=== PATIENT | female | born 1950 | race Caucasian/White ===

== ENCOUNTER → 2016-12-06 | Day surgery (SDC) | payer BC ==
[~2016-12-06] MED LIST: HYDR-963 PO; IV RINGERS,LACTATED 1000ML 1,000 ML IV SCH; LIDOCAINE 2% PF Vial for OR 5 ML VIAL. ONE; LISI1TAB7 PO; PROPOFOL 20 ML IV ONE
--- NOTE | 2016-12-06 15:28 | PDOC1 ---
History and Physical Date of Admission Date of Admission DATE: 12/06/16 TIME: 15:25 Source Source: Chart review, Patient History of Present Illness History of Present Illness 66 y/o female here for CRC screening. No prior. No GI complaints. No GI family history. Past Medical History Cardiovascular: HTN Musculoskeletal: Osteoarthritis Past Surgical History Past Surgical History None Family History Family History: Cancer (lung, leukemia, breast) Social History Smoke: No ALCOHOL: occassional Drugs: None Current Medications Current Medications Current Medications Lactated Ringer's 1,000 ml @ 50 mls/hr Q20H IV Last administered on 12/06/16t 07:00; Start 12/06/16 at 07:00; Stop 12/06/16 at 18:59 Propofol (Diprivan) 20 ml @ As Directed STK-MED ONCE IV ; Start 12/06/16 at 12: 18; Stop 12/06/16 at 12:19; Status DC Lidocaine HCl (Lidocaine Pf 2% Vial) 5 ml STK-MED ONCE .ROUTE ; Start 12/06/16 at 12:18; Stop 12/06/16 at 12:19; Status DC Active Scripts Active Reported [place] 10-325 Tablet (Acetaminophen/Hydrocodone Bitart) 1 Each Tablet 1-2 Tab PO Q4-6HRS Lisinopril-Hctz 20-25 Mg Tab (Lisinopril/Hydrochlorothiazide) 1 Each Tablet 1 Tab PO DAILY Allergies Allergies: Coded Allergies: erythromycin base (Verified Allergy, Intermediate, 12/06/16) ROS Review of System 10-point review otherwise negative. Physical Exam General: Alert, Oriented X3, Cooperative, No acute distress Lungs: Clear to auscultation Heart: S1S2, RRR, no gallops, no murmurs Abdomen: Normal bowel sounds, Soft, No tenderness, No hepatosplenomegaly, No masses Rectal Exam: deferred Extremities: No cyanosis, No edema Skin: No significant lesion Neuro: Normal speech, Strength at 5/5 X4 ext, Normal tone, Sensation intact, Cranial nerves 3-12 NL, Reflexes 2+ Psych/Mental Status: Mental status NL, Mood NL Vitals Vitals Vital Signs Date Time Temp Pulse Resp B/P Pulse Ox O2 Delivery O2 Flow Rate FiO2 12/06/16 11:10 75 20 96 VTE Prophylaxis Ordered VTE Prophylaxis Devices: No VTE Pharmacological Prophylaxi: No Assessment/Plan Assessment/Plan IMP: CRC screening, average risk. Plan: colonoscopy. XUAN NATION MD Dec 06, 2016 15:28
--- NOTE | 2016-12-06 16:01 | PDOC4 ---
PROCEDURE Procedure Colon/biopsy Ind: screen/ave risk/no prior. MEds: per anesthesia Findings: JAILYN normal. Diverticulosis sigmoid. 3mm polyp mid-transverse, biopsied off. Exam otherwise normal. Suzy. well IIMP: polyp tics REC: await path resume meds, diet. f/u 2 weeks repeat exam based on path. XUAN NATION MD Dec 06, 2016 16:01
[2016-12-06 16:30] VITALS: BP 147/63
--- NOTE | 2016-12-11 14:37 | PATHOLOGY ---
PATHOLOGY REPORT * * * * * * * * FINAL DIAGNOSIS: Colon, mid transverse, biopsy: - Hyperplastic polyp. (SUSANAM:; d/t: 12/11/16) REPORT ELECTRONICALLY SIGNED BY: Dora Payne M.D. DATE/TIME: 12/11/2016 14:37 * * * * * * * * GROSS PATHOLOGY: Received in formalin labeled "Zunilda Edwards, mid transverse colon polyp," are 3 segments of delgado soft tissue measuring 0.5 x 0.4 x 0.3 cm in aggregate dimensions and ranging from 0.2 to 0.5 cm in maximum dimension. The specimen is submitted entirely in cassette A1. (KAH; 12/09/2016) INITIAL CPT CODE(S): A; 96868 Professional services performed [place] [facility] [address] Technical services performed by [facility] at [address] [place] [address]. SPECIMEN(S) RECEIVED: A.Mid transverse colon polyp CLINICAL HISTORY: Screening PATIENT: ZUNILDA EDWARDS /AGE: 210/05/1950 (Age: 66) PATIENT #: [id number] ALT CASE #: SPECIMEN COLLECTION DATE: 12/09/2016 SPECIMEN RECEIVED DATE: 12/09/2016 [facility] - [address] [place] [address] - PHONE: [phone] * * * END OF REPORT * * *
== END | disposition home or self-care (01) ==
LOC: ENDOS 10:50
PROVIDERS: ATTEND Internal Medicine Gastroenterology
DX: Z12.11 Encounter for screening for malignant neoplasm of colon (principal); D12.3 Benign neoplasm of transverse colon; K57.30 Diverticulosis of large intestine without perforation or abscess without bleeding; K56.2 Volvulus; I10 Essential (primary) hypertension; M19.90 Unspecified osteoarthritis, unspecified site; Z72.89 Other problems related to lifestyle; Z87.39 Personal history of other diseases of the musculoskeletal system and connective tissue
CPT/HCPCS: 45380; 99156; J2704

== ENCOUNTER → 2017-03-19 | Outpatient (CLI) | payer BC ==
[2016-12-06 16:30] VITALS: BP 147/63
[~2017-03-19] MED LIST changes: -IV RINGERS,LACTATED 1000ML 1,000 ML IV SCH; -LIDOCAINE 2% PF Vial for OR 5 ML VIAL. ONE; -PROPOFOL 20 ML IV ONE
--- NOTE | 2017-03-19 16:14 | RAD ---
DATE: 03/19/2017 EXAM: DIGITAL SCREEN BILAT W/CAD HISTORY: Screening mammogram COMPARISON: Multiple prior examinations including 12/13/2015, October 25, 2014, 10/13/2014 and 10/07/2013. This study was interpreted with the benefit of Computerized Aided Detection (CAD). The breast parenchyma shows scattered fibroglandular densities. Breast parenchyma level B. FINDINGS: Digital 2-D CC and MLO views of both breasts. No suspicious mass, calcification or architectural distortion either breast. No significant change from prior examination. IMPRESSION: No mammographic evidence to suggest malignancy. BI-RADS 1, negative. Recommend routine screening mammogram in 12 months. BI-RADS CATEGORY: 1 NEGATIVE RECOMMENDED FOLLOW-UP: 12M 12 MONTH FOLLOW-UP PQRS compliance statement: Patient information was entered into a reminder system with a target due date March 2018 for the next mammogram. Mammography is a sensitive method for finding small breast cancers, but it does not detect them all and is not a substitute for careful clinical examination. A negative mammogram does not negate a clinically suspicious finding and should not result in delay in biopsying a clinically suspicious abnormality. "Our facility is accredited by the [employer] Mammography [employer]."
== END | disposition home or self-care (01) ==
LOC: MAMMO 07:57
PROVIDERS: ATTEND Family Medicine
DX: Z12.31 Encounter for screening mammogram for malignant neoplasm of breast (principal)
CPT/HCPCS: G0202; 77067

== ENCOUNTER → 2017-10-27 | Outpatient (CLI) | payer MEDICARE | END | disposition home or self-care (01) | LOC: KCIC 13:23 | DX: M47.892 Other spondylosis, cervical region (principal); M48.02 Spinal stenosis, cervical region; G89.29 Other chronic pain | CPT/HCPCS: 72050 ==

== ENCOUNTER → 2018-03-19 | Outpatient (CLI) | payer MEDICARE | END | disposition home or self-care (01) | LOC: MAMMO 08:22 | DX: Z12.31 Encounter for screening mammogram for malignant neoplasm of breast (principal); I10 Essential (primary) hypertension | CPT/HCPCS: 77067 ==

== ENCOUNTER → 2019-04-28 | Outpatient (CLI) | payer MEDICARE ==
[2016-12-06 16:30] VITALS: BP 147/63
[~2019-04-28] MED LIST changes: +HYDR-3135 PO; -HYDR-963 PO; +LISI1TAB20 PO; -LISI1TAB7 PO
--- NOTE | 2019-04-30 18:46 | RAD ---
DATE: 04/28/2019 EXAM: MAMMO GRICELDA SCREENING BILATERAL HISTORY: Routine screening COMPARISON: 03/19/2017 and 03/19/2018 mammographic exams This study was interpreted with the benefit of Computerized Aided Detection (CAD). Breast Density: SCATTERED The breast parenchyma shows scattered fibroglandular densities. Breast parenchyma level B. FINDINGS: No mass or distortion. No suspicious calcifications. IMPRESSION: Stable BI-RADS CATEGORY: 1 NEGATIVE RECOMMENDED FOLLOW-UP: 12M 12 MONTH FOLLOW-UP PQRS compliance statement: Patient information was entered into a reminder system with a target due date in one year for the next mammogram. Mammography is a sensitive method for finding small breast cancers, but it does not detect them all and is not a substitute for careful clinical examination. A negative mammogram does not negate a clinically suspicious finding and should not result in delay in biopsying a clinically suspicious abnormality. "Our facility is accredited by the [employer]ammography [employer]."
== END | disposition home or self-care (01) ==
LOC: MAMMO 08:45
PROVIDERS: ATTEND Family Medicine
DX: Z12.31 Encounter for screening mammogram for malignant neoplasm of breast (principal)
CPT/HCPCS: 77063; 77067

== ENCOUNTER → 2020-05-11 | Outpatient (CLI) | payer MEDICARE ==
[2016-12-06 16:30] VITALS: BP 147/63
--- NOTE | 2020-05-11 10:16 | RAD ---
BILATERAL SCREENING MAMMOGRAM, 3-D History: Routine screening. Comparison: 04/28/2019, 03/19/2018, 03/30/2017 Technique: MLO and CC digital tomosynthesis (3D) images obtained. Radiologist reviewed these images on dedicated workstation. Findings: Breast Tissue Density B : There are scattered areas of fibroglandular density. There are no dominant masses, suspicious microcalcifications, or architectural distortion. IMPRESSION: No mammographic evidence of malignancy. Recommend routine screening. BI-RADS category 1: Negative. The images were reviewed with computer-aided detection. Patient information is entered into reminder system with a target due date for the next screening mammogram. Mammography is the most sensitive method for finding small breast cancers, but it does not detect them all and is not a substitute for careful clinical examination. A negative mammogram does not negate a clinically suspicious finding and should not result in delay in biopsying a clinically suspicious abnormality. "Our facility is accredited by the [employer] Mammography [employer]." Electronically signed by: Edgar Chadwick MD (05/11/2020 10:13 AM) [facility]
== END | disposition home or self-care (01) ==
LOC: MAMMO 07:48
PROVIDERS: ATTEND Family Medicine
DX: Z12.31 Encounter for screening mammogram for malignant neoplasm of breast (principal)
CPT/HCPCS: 77063; 77067

== ENCOUNTER → 2020-11-30 | Outpatient (CLI) | payer MEDICARE ==
[2016-12-06 16:30] VITALS: BP 147/63
--- NOTE | 2020-11-30 16:46 | KCIC ---
Facial bone x-rays 3 views HISTORY: Facial swelling right side. 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 The maxillary, ethmo id and sphenoid sinuses are aerated without opacification or air-fluid levels. No fracture of the fac ial bones evident. 3 mm of leftward deviation of the osseous nasal septum. IMPRESSION: Mild leftward deviation of the osseous nasal septum. Otherwise negative exam. Electronically signed by: Husam Blum MD (11/30/2020 4:44 PM) [facility]
== END ==
LOC: KCIC 10:12
PROVIDERS: ATTEND Family Medicine
DX: J34.2 Deviated nasal septum (principal); R22.0 Localized swelling, mass and lump, head
CPT/HCPCS: 70150

== ENCOUNTER → 2021-06-19 | Outpatient (CLI) | payer MEDICARE ==
[2016-12-06 16:30] VITALS: BP 147/63
[~2021-06-19] MED LIST changes: -LISI1TAB20 PO; +LISI1TAB39 PO
--- NOTE | 2021-06-19 14:47 | RAD ---
BILATERAL SCREENING MAMMOGRAM History: Routine screening. Comparison: Most recently on 05/11/2020. Technique: Routine 2D and 3D tomosynthesis digital mammogram views were obtained bilaterally. Interpr etation was assisted with the use of computer-aided detection. Findings: Breast Tissue Density B: There are scattered areas of fibroglandular density. There are no dominant masses, suspicious microcalcifications, or architectural distortion. IMPRESSION: No mammographic evidence of malignancy. Recommend routine screening mammography in one year. BI-RADS category 1: Negative. Patient information is entered into the reminder system with a target due date for the next screening mammogram. "Our facility is accredited by the [employer] Mammography [employer]." Electronically signed by: CLARITZA LANCASTER MD (06/19/2021 2:44 PM) [id number]
== END ==
LOC: MAMMO 09:16
PROVIDERS: ATTEND Family Medicine
DX: Z12.31 Encounter for screening mammogram for malignant neoplasm of breast (principal)
CPT/HCPCS: 77063; 77067